=== PATIENT | female | born 1995 | race Caucasian/White ===

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

== ENCOUNTER 2018-08-07 23:47 | Emergency (ER) | payer OTHER ==
[~2018-08-07] VITALS: Ht 172.7 cm; Wt 103.4 kg
[2018-08-08 00:02] VITALS: Ht 172.7 cm; Wt 103.4 kg
[2018-08-08 03:48] VITALS: BP 127/87
== END 2018-08-08 03:48 | disposition home or self-care (01) ==
LOC: ED 23:47
DX: S29.012A Strain of muscle and tendon of back wall of thorax, initial encounter (principal); Z88.0 Allergy status to penicillin; X58.XXXA Exposure to other specified factors, initial encounter; Y93.89 Activity, other specified; Y92.89 Other specified places as the place of occurrence of the external cause; Y99.8 Other external cause status
CPT/HCPCS: 72072; J1885